=== PATIENT | male | born 1995 | race Caucasian/White ===

== ENCOUNTER 2018-10-12 22:09 | Emergency (ER) | payer OTHER ==
[2018-10-12 22:22] VITALS: TEMP 98.2
--- NOTE | 2018-10-12 22:38 | ED ---
Psych HPI - General Source: patient Mode of arrival: ambulatory <Alva Tan P - Last Filed: 10/12/18 22:35> <Marco A Hebert - Last Filed: 10/13/18 09:20> - General Chief Complaint: Psychiatric Symptoms Stated Complaint: Petition Time Seen by Provider: 10/12/18 22:19 - History of Present Illness Initial Comments: Marv is a 23-year-old male is brought to the emergency department today by police after waiting tenses of the patient contacted PD. Patient had apparently sent out text messages stating that he was going to blow his head off or overdose on pills to kill himself. Upon PD arrival patient did admit to sitting these text messages. The patient denied any active suicidal thoughts or plans. Patient did admit to being intoxicated and having significant alcohol tonight. Upon my evaluation patient states that he's been very anxious that he hasn't been able to eat or sleep in nearly 3 days. (Alva Tan) - Related Data Home Medications Medication Instructions Recorded Confirmed No Known Home Medications 10/12/18 10/12/18 Allergies Allergy/AdvReac Type Severity Reaction Status Date / Time No Known Allergies Allergy Verified 10/12/18 22:33 Review of Systems ROS Other: All systems not noted in ROS Statement are negative. <Alva Tan - Last Filed: 10/12/18 22:35> ROS Other: All systems not noted in ROS Statement are negative. <Marco A Hebert - Last Filed: 10/13/18 09:20> ROS Statement: Those systems with pertinent positive or pertinent negative responses have been documented in the HPI. Past Medical History Past Medical History: No Reported History History of Any Multi-Drug Resistant Organisms: None Reported Past Surgical History: No Surgical Hx Reported Past Psychological History: Anxiety Smoking Status: Never smoker Past Alcohol Use History: Occasional Past Drug Use History: Marijuana <Alva Tan - Last Filed: 10/12/18 22:35> General Exam Limitations: no limitations <Alva Tan P - Last Filed: 10/12/18 22:35> - General Exam Comments Initial Comments: Physical Exam GENERAL: Patient is well-developed and well-nourished. Patient is nontoxic and well-hydrated and is in no distress. HENT: Normocephalic, Atraumatic. EYES: PERRL, EOMI PULMONARY: Unlabored respirations. No audible rales rhonchi or wheezing was noted. CARDIOVASCULAR: There is a regular rate and rhythm without any murmurs gallops or rubs. ABDOMEN: Soft and nontender with normal bowel sounds. SKIN: Skin is clear with no lesions or rashes and otherwise unremarkable. : Deferred NEUROLOGIC: Patient is alert and oriented x3. Moving all extremities spontaneously Unsteady gait and slurred speech consistent with alcohol intoxication MUSCULOSKELETAL: Normal extremities with adequate strength and full range of motion. No lower extremity swelling or edema. No calf tenderness. PSYCHIATRIC: Anxious Limitations: no limitations (Alva Tan) Course Vital Signs 10/12/18 10/13/18 22:13 05:49 Temperature 98.2 F Pulse Rate 107 H 98 Respiratory 16 20 Rate Blood Pressure 120/78 108/68 O2 Sat by Pulse 96 Oximetry Medical Decision Making <Alva Tan - Last Filed: 10/12/18 22:35> - Lab Data Result diagrams: 10/12/18 22:00 10/12/18 22:00 <Marco A Hebert - Last Filed: 10/13/18 09:20> - Medical Decision Making Patient was seen and evaluated history is obtained from the patient and police at bedside 23-year-old male complaining of severe anxiety loss of appetite inability to sleep for 3 days admits to significant alcohol intake PD confirm that the patient made suicidal statements to multiple people the patient denies being actively suicidal Arlene patient that he is to rest comfortably here in the emergency department he will be evaluated by psychiatry in the morning. Patient is agreeable and cooperative upon arrival (Alva Tan) Patient's care is signed out awaiting sobriety and EPS evaluation. Patient is medically cleared, evaluated by EPS, no longer reporting any suicidal ideation or plan. Patient stable for discharge at this time. Will follow-up as an outpatient, return with worsening or changing symptoms. (Marco A Hebert) - Lab Data Lab Results 10/12/18 10/12/18 10/13/18 Range/Units 22:00 22:00 05:50 WBC 7.7 (3.8-10.6) k/uL RBC 6.21 H (4.30-5.90) m/uL Hgb 17.2 (13.0-17.5) gm/dL Hct 50.6 (39.0-53.0) % MCV 81.5 (80.0-100.0) fL MCH 27.6 (25.0-35.0) pg MCHC 33.9 (31.0-37.0) g/dL RDW 13.4 (11.5-15.5) % Plt Count 358 (150-450) k/uL Neutrophils % 58 % Lymphocytes % 30 % Monocytes % 9 % Eosinophils % 1 % Basophils % 1 % Neutrophils # 4.5 (1.3-7.7) k/uL Lymphocytes # 2.3 (1.0-4.8) k/uL Monocytes # 0.7 (0-1.0) k/uL Eosinophils # 0.0 (0-0.7) k/uL Basophils # 0.1 (0-0.2) k/uL Sodium 142 (137-145) mmol/L Potassium 4.2 (3.5-5.1) mmol/L Chloride 101 (98-107) mmol/L Carbon Dioxide 26 (22-30) mmol/L Anion Gap 15 mmol/L BUN 9 (9-20) mg/dL Creatinine 0.78 (0.66-1.25) mg/dL Est GFR (CKD-EPI)AfAm >90 (>60 ml/min/1.73 sqM) Est GFR (CKD-EPI)NonAf >90 (>60 ml/min/1.73 sqM) Glucose 114 H (74-99) mg/dL Calcium 9.8 (8.4-10.2) mg/dL Total Bilirubin 1.0 (0.2-1.3) mg/dL AST 25 (17-59) U/L ALT 31 (21-72) U/L Alkaline Phosphatase 68 (38-126) U/L Total Protein 8.5 H (6.3-8.2) g/dL Albumin 5.2 H (3.5-5.0) g/dL Urine Opiates Screen Not Detected (NotDetected) Ur Oxycodone Screen Not Detected (NotDetected) Urine Methadone Screen Not Detected (NotDetected) Ur Propoxyphene Screen Not Detected (NotDetected) Ur Barbiturates Screen Not Detected (NotDetected) U Tricyclic Antidepress Not Detected (NotDetected) Ur Phencyclidine Scrn Not Detected (NotDetected) Ur Amphetamines Screen Not Detected (NotDetected) U Methamphetamines Scrn Not Detected (NotDetected) U Benzodiazepines Scrn Not Detected (NotDetected) Urine Cocaine Screen Not Detected (NotDetected) U Marijuana (THC) Screen Not Detected (NotDetected) Disposition <Alva Tan - Last Filed: 10/12/18 22:35> Is patient prescribed a controlled substance at d/c from ED?: No Decision to Admit Reason: Admit from EC Decision Date: 10/13/18 Decision Time: 09:20 <Marco A Hebert - Last Filed: 10/13/18 09:20> Clinical Impression: Depression, Alcohol intoxication Disposition: HOME SELF-CARE Condition: Good Instructions (If sedation given, give patient instructions): Alcohol Intoxication (ED), Depression (ED) Referrals: Spencer Guidry MD [Primary Care Provider] - 1-2 days
[2018-10-12 23:14] LABS: Basophils # (A) 0.1 k/uL (0-0.2); Basophils % (A) 1 %; Eosinophils % (A) 1 %; HCT 50.6 % (39.0-53.0); HGB 17.2 gm/dL (13.0-17.5); Lymphocytes # (A) 2.3 k/uL (1.0-4.8); Lymphocytes % (A) 30 %; MCH 27.6 pg (25.0-35.0); MCHC 33.9 g/dL (31.0-37.0); MCV 81.5 fL (80.0-100.0); Mean Platelet Volume 6.4; Monocytes # (A) 0.7 k/uL (0-1.0); Monocytes % (A) 9 %; Neutrophils # (A) 4.5 k/uL (1.3-7.7); Neutrophils % (A) 58 %; Platelet Count 358 k/uL (150-450); RBC 6.21 m/uL (4.30-5.90); RDW 13.4 % (11.5-15.5); WBC 7.7 k/uL (3.8-10.6)
[2018-10-12 23:34] LABS: ALT 31 U/L (21-72); AST 25 U/L (17-59); Albumin 5.2 g/dL (3.5-5.0); Alkaline Phosphatase 68 U/L (38-126); Anion Gap 15 mmol/L; Blood Urea Nitrogen 9 mg/dL (9-20); Calcium 9.8 mg/dL (8.4-10.2); Carbon Dioxide 26 mmol/L (22-30); Chloride 101 mmol/L (98-107); Glucose 114 mg/dL (74-99); Potassium 4.2 mmol/L (3.5-5.1); Sodium 142 mmol/L (137-145); Total Protein 8.5 g/dL (6.3-8.2)
[2018-10-13 06:26] LABS: Amphetamine Screen,Urine Not Detected (NotDetected); Barbiturate Screen,Urine Not Detected (NotDetected); Benzodiazepines Screen,Urine Not Detected (NotDetected); Cocaine Screen,Urine Not Detected (NotDetected); Methadone Screen, Urine Not Detected (NotDetected); Opiate Screen,Urine Not Detected (NotDetected); Oxycodone Screen, Urine Not Detected (NotDetected); Phencyclidine Screen,Urine Not Detected (NotDetected); Tricyclic Antidepressant,Urine Not Detected (NotDetected); Urn Cannabinoid Scrn Not Detected (NotDetected)
[2018-10-13] MEDS ORDERED: DIAZEPAM 5 MG TAB PO STA (10:48)
[2018-10-13 10:53] VITALS: BP 140/87; PULSE 87; RESP 18
== END 2018-10-13 10:53 | disposition home or self-care (01) ==
LOC: EC 22:09
DX: F10.129 Alcohol abuse with intoxication, unspecified (principal); F32.9 Major depressive disorder, single episode, unspecified; F41.9 Anxiety disorder, unspecified
CPT/HCPCS: 36415; 80053; 80306; 82075; 85025; 99284